=== PATIENT | female | born 1990 | race Two or more races ===

== ENCOUNTER 2016-10-31 06:15 | Day surgery (SDC) | payer BC ==
[~2016-10-31] VITALS: Ht 154.9 cm; Wt 72.7 kg
[2016-10-31] MEDS ORDERED: CLAR10CA3 PO (06:43)
[2016-10-31] MEDS ORDERED: GUAI600T11 PO (06:44)
[2016-10-31] MEDS ORDERED: DEXT1TAB PO (06:44)
[2016-10-31 06:45] VITALS: BP 113/79; PULSE 96; RESP 20; TEMP 97.7; O2SAT 99
[2016-10-31] MEDS ORDERED: ceFAZolin 2 GM PREMIX 50 ML - implanted port removal IV SCH (07:00)
[2016-10-31 07:16] LABS: AUTOMATED NEUTROPHIL # 6.9 TH/MM3 (1.8-7.7); BASOPHIL % 0.5 % (0.0-2.0); EOSINOPHIL # 0.1 TH/MM3 (0-0.4); HEMATOCRIT 41.5 % (35.0-46.0); HEMO FLAGS DIFF FINAL; LYMPHOCYTE # 1.6 TH/MM3 (1.0-4.8); MEAN CELL VOLUME 87.2 FL (80.0-100.0); MEAN CORPUSCULAR HEMOGLOBIN 30.2 PG (27.0-34.0); MEAN CORPUSCULAR HGB CONC 34.6 % (32.0-36.0); MONO % 6.8 % (0.0-8.0); NEUT % 74.7 % (16.0-70.0); PLATELET COUNT 280 TH/MM3 (150-450); RED BLOOD COUNT 4.75 MIL/MM3 (4.00-5.30); RED CELL DISTRIBUTION WIDTH 12.9 % (11.6-17.2); WHITE BLOOD COUNT 9.3 TH/MM3 (4.0-11.0)
[2016-10-31 07:25] LABS: PROTHROMBIN TIME - PATIENT 10.5 SEC (9.8-11.6)
[2016-10-31 07:27] LABS: APTT (PATIENT) 24.4 SEC (24.3-30.1)
[2016-10-31] MEDS ORDERED: fentaNYL CITRATE 250 MCG/5 ML AMP ONE (08:10)
[2016-10-31] MEDS ORDERED: MIDAZOLAM HCL 5 MG/5 ML VIAL ONE (08:10)
[2016-10-31] MEDS ORDERED: LIDOCAINE 1%/EPINEPHrine 1:100,000 SOLN 20 ML VIAL ONE (08:33)
[2016-10-31 09:15] VITALS: BP 107/75; PULSE 107; RESP 18; TEMP 98.2; O2SAT 99
--- NOTE | 2016-10-31 09:18 | PD.RAD ---
Post Procedure Progress Note Pre Procedure Diagnosis: (1) Hodgkin lymphoma Post Procedure Diagnosis: (1) Hodgkin lymphoma Procedure Date: Oct 31, 2016 Supervising Radiologist: Nathaniel Rodriguez Proceduralist/Assist: Jasvir Faye RT(R), RT Du(R) Anesthesia: Local, Conscious Sedation Plan of Activity Patient to Unit: ROPU Patient Condition: Good See PACS Report for procedural detail/treatment Central Venous Access Device Procedure 1 Right Infusaport Removal single lumen Nathaniel Rodriguez MD Oct 31, 2016 09:18
[2016-10-31 09:30] VITALS: BP 110/72; PULSE 98; RESP 17; O2SAT 97
[2016-10-31 10:00] VITALS: BP 110/67; PULSE 84; RESP 18; O2SAT 98
[2016-10-31 10:30] VITALS: BP 111/60; PULSE 68; RESP 19; O2SAT 98
--- NOTE | 2016-10-31 10:58 | RADRPT ---
EXAM DATE/TIME: 10/31/2016 08:24 [facility] COMPARISON: No previous studies available for comparison. INDICATIONS : Patient presents with a history of hodgkins lymphoma in need of port removal that is no longer needed . MEDICAL HISTORY : Hx Hodgkins lymphoma SURGICAL HISTORY : Right port placement 08/2014 Tonsillectomy 2011 ENCOUNTER: Initial ACUITY: > 1 year PAIN SCORE: 0/10 LOCATION: N/A FLUORO TIME: 0.1 minutes IMAGE SERIES: 1 SEDATION TIME: 50 minutes 1.) 5 mg midazolam (Versed) IV 2.) 250 mcg fentanyl (Sublimaze) IV Prophylactic antibiotics were administered with appropriate pre-procedure timing. Vancomycin within 2 hrs of procedure, Ancef (or alternative) within 1 hr of procedure. PROCEDURE : 1. Removal of [id number]. 2. Conscious sedation with continuous EKG and oximetry monitoring. 3. Fluoroscopic guidance. The risks, benefits and alternatives to the procedure were explained and verbal and written consent w as obtained. The patient was placed supine. The port was prepped in sterile fashion. Full sterile t echnique was used, including cap, mask, sterile gloves and gown, and a large sterile sheet. Hand hyg iene and 2% chlorhexidine and/or Betadine/alcohol prep was utilized per protocol for cutaneous antise psis. The skin and subcutaneous tissues were infiltrated with local anesthetic solution the subcutaneous po cket was opened. The port was dissected from the subcutaneous tissues and easily removed in one piec e. The pocket incision was closed with subcuticular Vicryl suture. Steri-Strips were applied. Conscious sedation was performed with the prescribed dosages and duration as above in the presence of an independent trained radiology nurse to assist in the monitoring of the patient. EKG and oximetry remained stable throughout the procedure. The patient tolerated the procedure well and there were n o complications. The patient was sent to post anesthesia recovery in stable condition. CONCLUSION: Uncomplicated port removal as above. Nathaniel Rodriguez MD on October 31, 2016 at 10:57 Board Certified Radiologist. This report was verified electronically.
== END 2016-10-31 11:15 | disposition home or self-care (01) ==
LOC: HROP 06:15 → HRIP 06:18 → HROP 11:15
DX: Z45.2 Encounter for adjustment and management of vascular access device (principal); C81.72 Other Hodgkin lymphoma, intrathoracic lymph nodes
CPT/HCPCS: 36590; 77001; 85025; 85610; 85730; 99152; 99153; J0690; J2250; J3010